=== PATIENT | female | born 1980 | race Two or more races ===

== ENCOUNTER 2021-05-31 13:43 | Emergency (ER) | payer MEDICAID ==
[~2021-05-31] VITALS: Ht 154.9 cm; Wt 107.1 kg
--- NOTE | 2021-05-31 14:36 | NUR ---
CALL CENTER COORDINATOR: PT TO ROOM FROM JENNIFER CESAR.
[2021-05-31] MEDS ORDERED: KETOROLAC 30 MG/1 ML IM ONE (17:00)
--- NOTE | 2021-05-31 17:07 | NUR ---
PT REPORTS HER THROAT CLOSES IF SHE HAS ASPIRIN OR IBU. FAHAD [facility]OULD AWARE. TORADOL NOT GIVEN.
[2021-05-31 17:30] VITALS: BP 112/83
== END 2021-05-31 17:37 | disposition home or self-care (01) ==
LOC: ED 15:53
DX: M25.562 Pain in left knee (principal)
CPT/HCPCS: 29505; 99283